=== PATIENT | female | born 1995 | race Two or more races ===

== ENCOUNTER 2023-11-24 20:50 | Emergency (ER) | payer MEDICAID, SELFPAY ==
[2023-11-24 20:51] VITALS: BMI 29.9
--- NOTE | 2023-11-24 21:27 | PC.NURSE ---
NO ANSWER AT ER LOBBY OR OUTSIDE ER TO BE SEEN BY PROVIDER.
--- NOTE | 2023-11-24 21:40 | PC.NURSE ---
NO ANSWER AT ER LOBBY OR OUTSIDE ER.
== END 2023-11-24 21:41 | disposition left against medical advice (07) ==
LOC: SERX 22:51
PROVIDERS: Emergency Provider Emergency Medicine
DX: Z53.21 Procedure and treatment not carried out due to patient leaving prior to being seen by health care provider (principal)

== ENCOUNTER 2024-10-04 18:05 | Emergency (ER) | payer MEDICAID, SELFPAY ==
[2024-10-04 18:09] VITALS: BP 112/70; PULSE 98; RESP 18; TEMP 36.3; O2SAT 95
--- NOTE | 2024-10-04 18:12 | EDNOTE_ITS ---
<Statement entered by Sumi Larry MD - 10/05/24 21:40> As co-signing physician, I was present and available for consult prn. I concur with the plan and care as documented by the midlevel provider. ED Alcohol RME/HPI General Chief Complaint: Alcohol Stated Complaint: INTOXICATED Time Seen by Provider: 10/04/24 18:08 Arrival date/time: 10/04/24 18:05 RME / HPI RME / HPI narrative: 29-year-old female was brought in by EMS for evaluation regarding alcohol intoxication. Apparently patient was [facility] [place] Patient was noted to be drinking alcohol. 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 Related Data Previous Rx's ?Medication ?Instructions ?Recorded quetiapine 200 mg tablet 200 mg PO HS #30 tabs risperidone 2 mg tablet 2 mg PO HS #30 tabs 07/18/22 sertraline 100 mg tablet 100 mg PO QDAY #30 tabs 06/25 08/15 Allergies Allergy/AdvReac Type Severity Reaction Status Date / Time No Known Allergies Allergy Verified 10/04/24 18:51 Review of Systems Review of Systems Narrative Review of Systems: Review of system reviewed and within normal limits except mentioned in HPI ED Exam Narrative Physical exam: VITAL SIGNS: Reviewed. GENERAL APPEARANCE: Alert however drowsy, does not follows commands, no acute distress, open eyes with verbal stimulation HEAD AND FACE: Non-traumatic. ENT: PERRL, pink conjunctivitis, eyelid no trauma, Mucous membrane moist. NECK: Supple, nontender, no nuchal rigidity. CHEST: No tenderness, no crepitus, no paradoxical movement, no retractions. LUNGS: Clear, well ventilated, symmetric, no rales, no wheezing, no ronchi, no stridor, good breath sounds bilaterally. HEART: Regular rate, regular rhythm, no murmur, no gallops. ABDOMEN: Soft, positive bowel sounds, nondistended, no guarding, nontender, no rebound, no masses, RECTAL: Deferred. GENITAL: Deferred. NEUROLOGICAL: Gross motor function intact sensory function intact, Appropriate for age. MUSCULOSKELETAL: low back nontender, full range of motion. EXTREMITIES: Nontender, full range of motion. SKIN: Color pink, dry, no rash, no lacerations, no abrasions, no contusions. LYMPHATICS: Deferred. Course Quality Measures none Orders Category Date Time Status CT head/brain wo con Stat Exams 10/04/24 18:17 Completed Alcohol, Blood Medical Stat Lab 10/04/24 19:18 Completed CBC [CBC] Stat Lab 10/04/24 19:18 Completed CMP [Comprehensive Metabolic Panel] Stat Lab 10/04/24 19:18 Completed HCG Qualitative,Urine Stat Lab 10/04/24 19:04 Completed UA, C/S IF [Urinalysis, C/S if Indicated] Stat Lab 10/04/24 19:04 Completed Ondansetron Inj [Zofran Inj] Med 10/04/24 18:16 Discontinued 4 mg IVP X1 ONE Ringers Lactated 1000 ml [Lactated Ringers] 1,000 ml Med 10/04/24 18:11 Discontinued IV 999 mls/hr Vital Signs Vital signs: Vital Signs Temperature 97.4 F 10/04/24 18:09 Pulse Rate 98 10/04/24 18:09 Respiratory Rate 18 10/04/24 18:09 Blood Pressure 112/70 10/04/24 18:09 Pulse Oximetry (%) 95 10/04/24 18:09 Oxygen Delivery Method Room Air 10/04/24 18:09 Discharge Plan Plan Patient Disposition: HOME (Self Care) Discharge Disposition comment: Stable Prescriptions/Referrals Prescriptions/Med Rec: No Action quetiapine 200 mg tablet 200 mg PO HS Qty: 30 2RF risperidone 2 mg tablet 2 mg PO HS Qty: 30 2RF sertraline 100 mg tablet 100 mg PO QDAY Qty: 30 2RF Referrals: No Primary/Family,Physician [Primary Care Provider] - In 1 week Problem List Clinical Impression: Alcohol intoxication Patient/Caregiver Discharge Instructions Discharge Activity: activity as tolerated Education Materials: ED Alcohol Intoxication Additional Instructions: Thank you for the opportunity for serving you today. You are stable for discharged . You are advised to: Follow-up with your PCP in 1 to 2 days Return to ED for worsening of symptoms Increase oral fluids Print Language: Kiswahili Stand Alone Forms: Nany Award Info., Patient Portal Info Letter PA/SUPPLY CHAIN ASSISTANT Supervising Physician PA/DEREK Supervising Physician: MD Nicole Alcohol MDM Narrative MDM Narrative: 29-year-old female was brought in by EMS for evaluation regarding alcohol intoxication. Apparently patient [facility] [place] Patient was noted to be drinking alcohol. 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 Patient patient's alcohol level was noted to be 365. CT scan of the head came back unremarkable. The rest of the labs unremarkable Prior to discharge patient was noted to be alert and oriented, and walking normal straight line. Patient stable for discharge home Patient data External records reviewed:: None Clinical information provided by:: patient Social determinants that could affect healthcare access:: none Patient has the following chronic illnesses:: Chronic alcoholism How is presenting disease/condition affected by chronic disease/condition?: exacerbated by Evaluation data The following diagnostics were reviewed and interpreted by me:: lab results and radiology exam(s) Lab and/or radiology exams considered but not ordered:: None Interpretation Summary: See results in [facility] Medications / Prescriptions Medications or Prescriptions considered but not ordered:: None Medication administrations:: Medication Administration History Discontinued Medications Lactated Ringer's (Lactated Ringers) 1,000 mls @ 999 mls/hr IV .Q1H1M ONE Stop: 10/04/24 19:11 Last Infusion: 10/04/24 20:23 Dose: Infused Documented By: Admin: 10/04/24 19:01 Dose: 999 mls/hr Documented By: NELA Ondansetron HCl (Ondansetron Inj 2 Mg/Ml Inj 2 Ml) 4 mg IVP X1 ONE; Protocol Stop: 10/04/24 18:17 Last Admin: 10/04/24 18:59 Dose: 4 mg Documented By: NELA IV fluids, Zofran Consultations Consultation(s) initiated? (list below): No Diagnosis Differential diagnosis alcohol: alcohol intoxication Most likely diagnosis given after review of the tests above:: Alcohol intoxication Admission Indicated Admission indicated?: not indicated Explain why admission is indicated or not indicated:: Stable Admission Request Was there a request for admission?: No Disposition Plan Disposition Plan: Discharge Discharge Attestation Discharge Attestation: The patient was given an opportunity to ask questions and understood the discharge instructions. Discharge instructions specifically effects, indications for sooner follow up or return to the emergency department, and the expected course of current diagnosis. Patient condition: Stable
--- NOTE | 2024-10-04 18:17 | XR_ITS ---
Examination: CT brain head without contrast. 2-D sagittal coronal reconstructions Date and time of exam:October 04, 2024 1945 hours INDICATIONS: Altered mental status today CTDI: vol (mGy):46.7 DLP: (mGycm):870 Technique: Multiple CT axial sections of the brain have been obtained, 5 mm slice thickness. Contrast has not been administered. 2-D sagittal, coronal reconstructions have been obtained Low dose protocols were performed. One or more of the following dose reduction techniques were used; automated exposure control, adjustment of the mA and/or KV according to patient size, use of iterative reconstruction technique. Findings: No significant ventricular enlargement. Intra-axial or extra-axial hemorrhage density is not seen. No mass effect or midline shift Basal cisterns are not remarkable. Fourth ventricle is midline. Cranial vault intact. Impression: Negative for acute hemorrhage, mass effect or midline shift
[2024-10-04 18:24] VITALS: BP 115/63; PULSE 94; RESP 18; TEMP 36.8; O2SAT 97
[2024-10-04 18:35] VITALS: PULSE 111; O2SAT 96
[2024-10-04] MEDS: ONDANSETRON INJ 2 MG/ML INJ 2 ML 4 MG IVP (18:59)
[2024-10-04] MEDS: RINGERS LACTATED 1000 ML 1,000 ML 999 ML IV (19:01)
[2024-10-04 19:29] LABS: Collection Type, Urine Clean Catch; Squamous Epithelial Cell,Urine 0 /hpf (0-5); WBC,Urine 0 /hpf (0-5)
[2024-10-04 19:29] LABS: Basophils # (Auto) 0.1 Thou/mm3 (0.0-0.2); Basophils % (Auto) 1 % (0-2.5); Eosinophils # (Auto) 0.0 Thou/mm3 (0.0-0.5); Eosinophils % (Auto) 0 % (0-10); Hematocrit 41.8 % (36.0-46.0); Hemoglobin 14.0 g/dL (12.0-16.0); Immature Granulocytes Auto 0.04 Thou/mm3 (0.00-0.00); Lymphocytes # (Auto) 1.6 Thou/mm3 (1.0-4.8); Lymphocytes % (Auto) 17 % (10-50); Mean Corpuscular HGB Conc 33.5 g/dl (31.0-37.0); Mean Corpuscular Hemoglobin 29.6 pg (25.0-35.0); Mean Corpuscular Volume 88 fL (80-100); Monocytes # (Auto) 0.2 Thou/mm3 (0.0-0.8); Monocytes % (Auto) 3 % (0-12); Neutrophils # (Auto) 7.4 Thou/mm3 (1.8-7.7); Neutrophils % (Auto) 79 % (37-80); Nucleated Red Blood Cell # 0.00 Thou/mm3 (0.00-0.00); Nucleated Red Blood Cell % 0 /100 WBC (0); Platelet Count 486 Thou/mm3 (140-440); RDW Standard Deviation 42.8 fL (36.4-46.3); Red Blood Count 4.73 Miln/mm3 (4.00-5.20); White Blood Count 9.3 Thou/mm3 (3.6-11.0)
[2024-10-04 19:34] LABS: Bilirubin,Urine Negative (Negative); Blood,Urine Negative (Negative); Clarity,Urine Clear (Clear/Hazy); Color,Urine Colorless (Lt Yel-Yel); Culture Indicated,Urine Not Indicated; Glucose, Urine Negative (Negative); HCG Qualitative,Urine Negative; Ketones,Urine Negative (Negative); Leukocyte Esterase,Urine Negative (Negative); Nitrite,Urine Negative (Negative); PH,Urine 7.0 (5.0-7.0); Protein,Urine Negative (Neg - Trace); RBC,Urine 1 /hpf (0-3); Specific Gravity,Urine 1.004 (1.001-1.035); Urobilinogen,Urine Negative mg/dL (0.0-1.0)
[2024-10-04 20:05] LABS: Alanine Aminotransferase 57 U/L (10-49); Albumin, Serum 4.7 gm/dL (3.5-5.0); Albumin/Globulin Ratio 1.6 (1.2-2.2); Alcohol, Blood Medical 365.3 mg/dL (0-10.0); Alkaline Phosphatase 121 U/L (46-116); Anion Gap 11 (7-16); Aspartate Amino Transferase 47 U/L (0-34); BUN/Creatinine Ratio 6 Ratio (12-20); Bilirubin,Total 0.2 mg/dL (0.3-1.2); Blood Urea Nitrogen < 5 mg/dL (9-23); Calcium 9.0 mg/dL (8.3-10.6); Calcium (Corrected) 9.0 mg/dL (8.5-10.1); Carbon Dioxide 28.3 mMol/L (20.0-31.0); Chloride 108 mMol/L (98-107); Creatinine (Component) 0.8 mg/dL (0.6-1.3); Globulin 2.9 gm/dL (2.3-3.5); Glucose 107 mg/dL (74-106); Osmolality,Calculated 289 (275-295); Potassium 3.6 mMol/L (3.4-5.1); Sodium 147 mMol/L (136-145); Total Protein 7.6 gm/dL (5.7-8.2); eGFR > 60 See Note
--- NOTE | 2024-10-04 20:06 | PC.NURSE ---
LINEN AND BRIEF CHANGED. PATIENT HAD REMOVED BRIEF AND URINATED ON BED. WHEN CHANGING PATIENT, PATIENT BEGAN LAUGHING AND RAISING HER MIDDLE FINGER TO STAFF. WHEN ATTEMPTING TO ASK PATIENT ASSESSMENT QUESTIONS PATIENT REFUSING TO ANSWER AND CONTINUED TO RAISE MIDDLE FINGER TO STAFF. WHEN PROVIDING PATIENT WITH PILLOW PATIENT SPAT AT STAFF. NATIONAL FACILITIES MANAGER BRIANNA MADED AWARE, NO NEW ORDERS RECEIVED.
[2024-10-04 20:28] VITALS: BMI 26.6
[2024-10-04 20:39] VITALS: BP 104/70; PULSE 104; RESP 17; TEMP 36.7; O2SAT 98
[2024-10-04 22:34] VITALS: BP 103/72; PULSE 102; RESP 18; TEMP 36.6; O2SAT 98
[2024-10-05 01:31] VITALS: BP 104/78; PULSE 98; RESP 20; TEMP 36.7; O2SAT 100
--- NOTE | 2024-10-05 01:33 | PC.NURSE ---
pt awake and alert, states would like to go home but needs to phone to call family. pt allowed to use hospital phone, but is unable to reach anyone because states she does not know anyones number. pt asked if she can be discharged and given a taxi, pt informed taxi does not run at night but offered to wait till morning for taxi voucher. pt agreed to staying in lobby until she can get ahold of family friends, or taxi. pt provided with clean clothes, and shoes. pt discharged and walked out of ed 16 with a steady gait. all questions answered.
== END 2024-10-05 01:39 | disposition home or self-care (01) ==
PROVIDERS: Nurse Practitioner Family; Emergency Provider Emergency Medicine
DX: F10.129 Alcohol abuse with intoxication, unspecified (principal); Y90.8 Blood alcohol level of 240 mg/100 ml or more
CPT/HCPCS: 36415; 70450; 80053; 80320; 81001; 81025; 85025; 96361; 96374; 99283; J2405; J7120; G0480

== ENCOUNTER 2024-10-05 03:58 | Emergency (ER) | payer MEDICAID, SELFPAY ==
[2024-10-05 04:12] VITALS: BP 107/70; PULSE 102; RESP 18; TEMP 36.8; O2SAT 100
--- NOTE | 2024-10-05 04:23 | EDNOTE_ITS ---
<Statement entered by Sumi Larry MD - 10/05/24 05:21> As co-signing physician, I was present and available for consult prn. I concur with the plan and care as documented by the midlevel provider. ED General RME/HPI General Chief complaint: General Adult/Misc Complain Stated complaint: Dizzy weak, vomiting Time Seen by Provider: 10/05/24 04:08 Arrival date/time: 10/05/24 03:58 RME / HPI RME / HPI narrative: 29-year-old female presents to the ED with a complaint of dizziness, weakness, nausea and vomiting. She was here in the department earlier this evening and had a complete workup and was noted to have an alcohol level with significant elevation of 365 at 7:15 PM. She was hydrated with IV fluids, given Zofran and had a head CT, and discharged to the [facility]. While waiting in the [facility] for a ri de, she began having vomiting again. She admits to drinking earlier today, 240 ounce beers as well as a couple of shots. Related Data Previous Rx's ?Medication ?Instructions ?Recorded quetiapine 200 mg tablet 200 mg PO HS #30 tabs risperidone 2 mg tablet 2 mg PO HS #30 tabs 07/18/22 sertraline 100 mg tablet 100 mg PO QDAY #30 tabs 06/25 08/15 ondansetron 4 mg disintegrating 4 mg PO Q6H PRN nausea and 10/05/24 tablet vomiting #10 tabs Allergies Allergy/AdvReac Type Severity Reaction Status Date / Time No Known Allergies Allergy Verified 10/04/24 18:51 Review of Systems Review of Systems Systems Reviewed: All systems reviewed, normal except as documented Past Medical History Past Medical History NEUROLOGIC: Negative Neurological Disorders or Seizures CARDIAC: Negative Cardiac Disorders or Congestive Heart Failure RESPIRATORY: Negative Chronic Obstructive Pulmonary Disease (COPD) GASTROINTESTINAL: Negative Gastrointestinal Disorders, Hepatitis or Colorectal Cancer GENITOURINARY: Negative Genitourinary Disorders, Renal Disease or Prostate Cancer REPRODUCTIVE: Positive Previous Pregnancies; Negative Breast Cancer, Endometriosis, Pelvic Inflammatory Disease, Testicular Cancer or Uterine Prolapse MUSCULOSKELETAL: Negative Musculoskeletal Disorders (metal bars in left femur) or Bone Cancer ENT: Negative Cataracts ENDOCRINE: Negative Endocrine Disorders, Diabetes Mellitus Type 1 or Diabetes Mellitus Type 2 HEMATOLOGIC: Negative Blood Disorders or Anemia PSYCHO/SOCIAL: Positive Recreational Drug Use, Bipolar Disorder, Depression and Anxiety; Negative Psychiatric Problems, Schizophrenia, Self-Mutilation, Attention Deficit Disorder, Attention Deficit Hyperactivity Disorder, Depression, Post Traumatic Stress Disorder or Eating Disorder OTHER HISTORY: Positive Hospitalization and Blood Transfusions; Negative Autoimmune Disease, Down Syndrome, Autism, Developmental Delay, Shingles, Falls, Blood Transfusion Reaction, Anesthesia Reactions, MRSA, VRSA, Vancomycin-Resistant Enterococci, Human Immunodeficiency Virus (HIV), Chicken Pox, Measles, Mumps, Rubella ([place] Measles), Pertussis, Clostridium Difficile, Cancer, Breast Cancer, Cervical Cancer, Colorectal Cancer, Lung Cancer, Ovarian Cancer, Prostate Cancer or Testicular Cancer Family History FAMILY HISTORY: Negative Family Psychiatric Problems, Family Respiratory Disorders, Family Cardiac Disorders, Family Gastrointestinal Problems, Family Cancer, Family Surgery or Family Anesthesia Reaction Surgical History SURGICAL: Negative Cardiac Surgery, Open Heart Surgery, Coronary Artery Bypass Graft, Valve Replacement, Vascular Surgery, Coronary Stent, Cardiac Catheterization, Pacemaker, Angiogram, Auto Implanted Cardiovert Defib, Carotid Endarterectomy, Endocrine Surgery, Thyroidectomy, Ear Surgery, Tympanostomy Tube, Eye Surgery, Nose Surgery, Oral Surgery, Tonsillectomy, Adenoidectomy, Cochlear Implant, Corneal Transplant, Throat Surgery, Abdominal Surgery, Tracheostomy, Gastric Bypass Surgery, Gastrostomy, Bowel Surgery or Section Social History SMOKING STATUS: Unknown if ever smoked SECOND HAND EXPOSURE: No SUBSTANCE USE: marijuana and methamphetamine ED Exam Narrative Physical exam: Alert and oriented, mild acute distress. Lungs are clear, regular rate and rhythm. Abdomen is soft and nontender. Moves all extremities well. Ambulatory without difficulty. Course Course Course Narrative: Patient was given Zofran 8 mg ODT. Quality Measures none Vital Signs Vital signs: Vital Signs Temperature 98.3 F 10/05/24 04:12 Pulse Rate 102 H 10/05/24 04:12 Respiratory Rate 18 10/05/24 04:12 Blood Pressure 107/70 10/05/24 04:12 Pulse Oximetry (%) 100 10/05/24 04:12 Oxygen Delivery Method Room Air 10/05/24 04:12 Discharge Plan Plan Patient Disposition: HOME (Self Care) Discharge Disposition comment: Stable Prescriptions/Referrals Prescriptions/Med Rec: New ondansetron 4 mg tablet,disintegrating 4 mg PO Q6H PRN (Reason: nausea and vomiting) Qty: 10 0RF No Action quetiapine 200 mg tablet 200 mg PO HS Qty: 30 2RF risperidone 2 mg tablet 2 mg PO HS Qty: 30 2RF sertraline 100 mg tablet 100 mg PO QDAY Qty: 30 2RF Problem List Clinical Impression: Alcohol intoxication, Nausea and vomiting Patient/Caregiver Discharge Instructions Education Materials: ED Alcohol Intoxication, ED Vomiting (Adult) Additional Instructions: Follow-up with your primary care physician in 24 to 48 hours. Return to the ED for any new or worsening symptoms. Print Language: Icelandic Stand Alone Forms: Nany Award Info., Patient Portal Info Letter PA/EDUCATIONAL INTERPRETER Supervising Physician PA/EDUCATIONAL INTERPRETER Supervising Physician: Dr. Larry [facility] Narrative [facility] hospital course: 29-year-old female presents to the ED with a complaint of dizziness, weakness, nausea and vomiting. She was here in the department earlier this evening and had a complete workup and was noted to have an alcohol level with significant elevation of 365 at 7:15 PM. She was hydrated with IV fluids, given Zofran and had a head CT, and discharged to the [facility]. While waiting in the [facility] for a ride, she began having vomiting again. She admits to drinking earlier today, 240 ounce beers as well as a couple of shots. Alert and oriented, mild acute distress. Lungs are clear, regular rate and rhythm. Abdomen is soft and nontender. Moves all extremities well. Ambulatory without difficulty. Patient was given Zofran 8 mg ODT. She was discharged to the [facility] in stable condition. Procedures done or offered: Zofran 8 mg ODT. Clinical Information Provided by patient Medical Records Reviewed [facility] Meds/Rx Considered, not Ordered None Labs/Rad/Tests considered, not Ordered None Describe details: Complete labs done earlier this evening. Chronic Illness/Social Conditions which may negatively complicate care or outcome(s)-explain: Homeless, Mental health and ETOH/drugs/substance abuse EKG EKG not done Lab Interpretation Labs: none Lab(s) interpretation(s): N/A Imaging Imaging interpretation: none Provider imaging interpretation(s): N/A Radiology reports / interpretation(s): N/A Medication Administration(s) Zofran 8 mg ODT. Diagnosis Differential diagnosis: Alcohol intoxication, nausea and vomiting, gastritis Most likely dx, and/or detailed dx discussion: Alcohol intoxication with nausea and vomiting Dispositon Disposition: Discharge Home Disposition comments: Patient is stable for discharge.
[2024-10-05] MEDS: ONDANSETRON ODT 4 MG TABRAP 8 MG PO (04:33)
[2024-10-05 04:38] VITALS: RESP 16
== END 2024-10-05 04:39 | disposition home or self-care (01) ==
PROVIDERS: Emergency Provider Emergency Medicine
DX: F10.129 Alcohol abuse with intoxication, unspecified (principal); Y90.8 Blood alcohol level of 240 mg/100 ml or more
CPT/HCPCS: 99282; Q0162